=== PATIENT | male | born 1965 | race Caucasian/White ===

== ENCOUNTER 2018-10-21 07:41 | Day surgery (SDC) | payer OTHER ==
[~2018-10-21] VITALS: Ht 172.7 cm; Wt 113.6 kg
[~2018-10-21 07:41] MED LIST: AMLO10 PO; CHLO500 PO; HYDR-86 PO; HYDR1TAB94 PO; IBUP600 PO; Veetids 500500 MG PO; [UNRECOGNIZED DRUG - OTHER] PO
--- NOTE | 2018-10-21 08:22 | NUR ---
History, Chart, Medications and Allergies reviewed before start of procedure. Patient states colon prep results clear. Patient States Post-Procedure ride home has been arranged.
--- NOTE | 2018-10-21 08:36 | NUR ---
10/21/18 0836 Shubham Jaeger 3-LEAD EKG REVIEWED WITH PHYSICIAN PRIOR TO START OF PROCEDURE.Patient to ENDO 1History, Chart, Medications and Allergies reviewed before start of procedure.PATIENT DETERMINED TO BE ASA APPROPRIATE FOR PROPOFOL SEDATION PRIOR TO START OF PROCEDURE BY MONITOR INTACT WITH CONTINUOUS PULSE OXIMETRY AND INTERMITTENT BP.O2 VIA N/C INTACT THROUGHOUT SEDATION/PROCEDURE.
--- NOTE | 2018-10-21 09:49 | NUR ---
0940- Discharge instructions reviewed with patient. Patient verbalizes understanding. Copy given to patient to take home. Discharged via wheelchair to private car for ride home.
== END 2018-10-21 23:06 | disposition home or self-care (01) ==
LOC: ORSCMMR 07:41 → ORD 08:30 → ORSCMMR 08:30
PROVIDERS: Internal Medicine Gastroenterology
PROC: 0DBN8ZX Excision of Sigmoid Colon, Via Natural or Artificial Opening Endoscopic, Diagnostic (ICD-10-PCS; principal; 2018-10-21 08:30)
DX: Z12.11 Encounter for screening for malignant neoplasm of colon (principal); D12.5 Benign neoplasm of sigmoid colon; I10 Essential (primary) hypertension; Z79.899 Other long term (current) drug therapy
CPT/HCPCS: 88305; J2704; J7120

== ENCOUNTER 2024-05-02 11:46 | Emergency (ER) | payer OTHER ==
[~2024-05-02] VITALS: Ht 172.7 cm; Wt 107.0 kg
[~2024-05-02 11:46] MED LIST changes: +Flomax0.4 MG PO; +Norco 5-325 Ta1 EACH PO
[2024-05-02 13:10] LABS: CORONAVIRUS COVID-19 AG Negative (NEGATIVE); INFLUENZA A AG Positive (NEGATIVE); INFLUENZA B AG Negative (NEGATIVE)
[2024-05-02 15:10] VITALS: BP 161/114
== END 2024-05-02 15:11 | disposition home or self-care (01) ==
LOC: ER 11:46
PROVIDERS: Physician Assistant
DX: J10.1 Influenza due to other identified influenza virus with other respiratory manifestations (principal); I10 Essential (primary) hypertension
CPT/HCPCS: 87428-QW; 99283